=== PATIENT | male | born 1965 | race Caucasian/White ===

== ENCOUNTER → 2023-03-21 | Outpatient (CLI) | payer BC ==
--- NOTE | 2023-03-21 09:30 | XR ---
EXAMINATION TYPE: XR spine complete AP and Lat DATE OF EXAM: 03/21/2023 COMPARISON: NONE HISTORY: Pain TECHNIQUE: AP and lateral views of the cervical, thoracic and lumbar spine submitted FINDINGS: Cervical spine: There is hypertrophic change at level C4-5, C5-C6 and C6-C7 with anterior spurring. M ild disc space loss at C5-6 and C6-C7. Mild facet arthropathy. Thoracic spine: Alignment is anatomic and there is multilevel moderate hypertrophic and degenerative disc disease. No compression deformities. Pedicles intact. Lumbar spine: There is multilevel anterior hypertrophic spurring. Facet arthropathy seen at levels L3 -S1. Suspect foraminal encroachment L4-5 and L5-S1. Pedicles are intact and disc spaces preserved. IMPRESSION: 1. Multilevel hypertrophic spurring throughout the cervical, thoracic and lumbar spine with foraminal encroachment suspected L4-5 and L5-S1. 2. Multilevel mild degenerative disc disease cervical spine. 3. Multilevel moderate degenerative disease thoracic spine.
[2023-03-21 15:51] LABS: Basophils # (A) 0.04 X 10*3/uL (0.00-0.10); Basophils % (A) 0.7 %; Eosinophils # (A) 0.21 X 10*3/uL (0.04-0.35); Eosinophils % (A) 3.7 %; HCT 45.1 % (39.6-50.0); HGB 14.7 d/dL (12.0-15.0); Lymphocytes # (A) 1.77 X 10*3/uL (0.90-5.00); MCH 30.7 pg (27.0-32.0); MCHC 32.6 d/dL (32.0-37.0); MCV 94.2 FL (80.0-97.0); Mean Platelet Volume 11.1 FL (9.5-12.2); Monocytes # (A) 0.35 X 10*3/uL (0.20-1.00); Monocytes % (A) 6.1 %; NRBC Per 100 WBC 0 X 10*3/uL (0.00-0.01); Neutrophils # (A) 3.33 X 10*3/uL (1.80-7.70); Neutrophils % (A) 58.3 %; Platelet Count 256 X 10*3/uL (140-440); RBC 4.79 X 10*6/uL (4.40-5.60); RDW 13.3 % (11.5-14.5); WBC 5.71 X 10*3/uL (4.50-10.00)
[2023-03-21 15:54] LABS: ALT 34 U/L (10-49); AST 17 U/L (14-35); Albumin 4.4 d/dL (3.8-4.9); Alkaline Phosphatase 84 U/L (41-126); BUN/Creat Ratio 32.86 Ratio (12.00-20.00); Calcium 9.5 mg/dL (8.7-10.3); Carbon Dioxide 27.7 mmol/L (21.6-31.8); Chloride 103 mmol/L (96-109); Globulin 2.2 d/dL (1.6-3.3); Glucose 136 mg/dL (70-110); Potassium 3.8 mmol/L (3.5-5.5); Sodium 142 mmol/L (135-145); Total Bilirubin 0.5 mg/dL (0.3-1.2); Total Protein 6.6 d/dL (6.2-8.2)
== END | disposition home or self-care (01) ==
LOC: LABWHC1 08:11
PROVIDERS: ATTEND Nurse Practitioner Family
DX: M50.30 Other cervical disc degeneration, unspecified cervical region (principal); M51.34 Other intervertebral disc degeneration, thoracic region; I10 Essential (primary) hypertension; D75.1 Secondary polycythemia; R59.0 Localized enlarged lymph nodes
CPT/HCPCS: 36415; 72082; 80053; 85025

== ENCOUNTER 2023-11-12 09:49 | Inpatient (IN) | payer BC ==
--- NOTE | 2023-11-12 11:36 | ED ---
General Adult HPI - General Chief complaint: Abdominal Pain Stated complaint: Small Bowel Obs, Transfer Time Seen by Provider: 11/12/23 09:49 Source: patient, EMS, RN notes reviewed, old records reviewed Mode of arrival: EMS Limitations: no limitations - History of Present Illness Initial comments: This is a 57-year-old male who presents to the emergency department from [facility]. Patient was sent over here for a small bowel obstruction. Patient states on Monday he started having diarrhea and he vomited 1 time and then he continued to have diarrhea he went to [facility] noticed his abdomen was distended they did a CAT scan and he was diagnosed with a small bowel obstruction. Patient had an NG tube placed and he states he feels considerably better. Patient denies any fever or chills. Patient states he did have a couple people he was around who had similar symptoms but they are symptoms subsided. Patient denies any chest pain or difficulty breathing. Patient denies any headache or numbness or weakness. - Related Data Home Medications Medication Instructions Recorded Confirmed Aspirin 1 tab PO DAILY 12/12/22 02/06/23 Atorvastatin [Lipitor] 1 tab PO DAILY 12/12/22 02/06/23 Cholecalciferol [Vitamin D3 (25 50 mcg PO DAILY 12/12/22 02/06/23 Mcg = 1000 Iu)] Losartan [Cozaar] 100 mg PO DAILY 12/12/22 02/06/23 Multivitamin [Multivitamins Adult 1 tab PO DAILY 12/12/22 02/06/23 Gummies] atenoloL 1 tab PO DAILY 12/12/22 02/06/23 hydroCHLOROthiazide 1 tab PO DAILY 12/12/22 02/06/23 Allergies Allergy/AdvReac Type Severity Reaction Status Date / Time azithromycin AdvReac Rash/Hives Verified 11/12/23 10:13 Review of Systems ROS Statement: Those systems with pertinent positive or pertinent negative responses have been documented in the HPI. ROS Other: All systems not noted in ROS Statement are negative. Past Medical History Past Medical History: Coronary Artery Disease (CAD), Cancer, Hyperlipidemia, Hypertension, Myocardial Infarction ([place]) Additional Past Medical History / Comment(s): inferior wall mi ,skin cancer basal cell Last Myocardial Infarction Date:: 34 years old History of Any Multi-Drug Resistant Organisms: None Reported Past Surgical History: No Surgical Hx Reported, Heart Catheterization Additional Past Surgical History / Comment(s): basal cell removal Past Anesthesia/Blood Transfusion Reactions: No Reported Reaction Past Psychological History: Depression Smoking Status: Never smoker General Exam - General Exam Comments Initial Comments: GENERAL: Patient is well-developed and well-nourished. Patient is nontoxic and well- hydrated and is in mild distress. ENT: Neck is soft and supple. No significant lymphadenopathy is noted. Oropharynx is clear. Moist mucous membranes. Neck has full range of motion without eliciting any pain. EYES: The sclera were anicteric and conjunctiva were pink and moist. Extraocular movements were intact and pupils were equal round and reactive to light. Eyelids were unremarkable. PULMONARY: Unlabored respirations. Good breath sounds bilaterally. No audible rales rhonchi or wheezing was noted. CARDIOVASCULAR: There is a regular rate and rhythm without any murmurs gallops or rubs. ABDOMEN: Mildly distended abdomen with some minimal diffuse tenderness SKIN: Skin is clear with no lesions or rashes and otherwise unremarkable. NEUROLOGIC: Patient is alert and oriented x3. Cranial nerves II through XII are grossly intact. Motor and sensory are also intact. Normal speech, volume and content. Symmetrical smile. MUSCULOSKELETAL: Normal extremities with adequate strength and full range of motion. LYMPHATICS: No significant lymphadenopathy is noted PSYCHIATRIC: Normal psychiatric evaluation. Limitations: no limitations Course Vital Signs 11/12/23 11/12/23 09:54 11:01 Temperature 99.0 F Pulse Rate 99 94 Respiratory 20 Rate O2 Sat by Pulse 94 L Oximetry Medical Decision Making - Medical Decision Making Was pt. sent in by a medical professional or institution (, PA, SPOUT TENDER, urgent care, hospital, or residential...) When possible be specific @ -Patient was sent to us by [facility] Did you speak to anyone other than the patient for history (EMS, parent, family, police, friend...)? What history was obtained from this source @ -ER doctor gave us report prior to the patient's arrival. EMS gave us a report about patient and [facility]. Did you review nursing and triage notes (agree or disagree)? Why? @ -I reviewed and agree with nursing and triage notes Were old charts reviewed (outside hosp., previous admission, EMS record, old EKG, old radiological studies, urgent care reports/EKG's, residential records)? Report findings @ -I reviewed all the documents that came with the patient for [facility] as well as lab work CTs and x-rays Differential Diagnosis (chest pain, altered mental status, abdominal pain women, abdominal pain men, vaginal bleeding, weakness, fever, dyspnea, syncope, headache, dizziness, GI bleed, back pain, seizure, CVA, palpatations, mental health, musculoskeletal)? @ -Differential Abdominal Pain Men: Appendicitis, cholecystitis, diverticulosis, ischemic bowel, pancreatitis, hepatitis, UTI, gastroenteritis, AAA, incarcerated hernia, bowel obstruction, constipation, inflammatory bowel, hepatitis, peptic ulcer disease, splenic infarction, perforated viscus, testicular torsion, this is not meant to be an all-inclusive list EKG interpreted by me (3pts min.). @ -As above X-rays interpreted by me (1pt min.). @ -None done CT interpreted by me (1pt min.). @ -None done U/S interpreted by me (1pt. min.). @ -None done What testing was considered but not performed or refused? (CT, X-rays, U/S, labs)? Why? @ -None What meds were considered but not given or refused? Why? @ -None Did you discuss the management of the patient with other professionals (professionals i.e. , PA, SPOUT TENDER, lab, RT, psych nurse, social services coordinator, leasing director, teacher, small business banking officer, caser up)? Give summary @ -I spoke with [facility] they agreed admit the patient but the patient wrote admitting orders Was smoking cessation discussed for >3mins.? @ -No Was critical care preformed (if so, how long)? @ -No Were there social determinants of health that impacted care today? How? (Homelessness, low income, unemployed, alcoholism, drug addiction, trans portation, low edu. Level, literacy, decrease access to med. care, penitentiary, rehab)? @ -No Was there de-escalation of care discussed even if they declined (Discuss DNR or withdrawal of care, Hospice)? DNR status @ -No What co-morbidities impacted this encounter? (DM, HTN, Smoking, COPD, CAD, Cancer, CVA, ARF, Chemo, Hep., AIDS, mental health diagnosis, sleep apnea, morbid obesity)? @ -None Was patient admitted / discharged? Hospital course, mention meds given and route, prescriptions, significant lab abnormalities, going to OR and other pertinent info. @ -Patient had an NG in place already I did review the lab results as well as CAT scan did show what I believed to be a partial small bowel obstruction. I spoke with [facility] hospitalist agreed admit the patient admit the patient right admitting orders consult to Dr. Faustin Undiagnosed new problem with uncertain prognosis? @ -No Drug Therapy requiring intensive monitoring for toxicity (Heparin, Nitro, Insulin, Cardizem)? @ -No Were any procedures done? @ -No Diagnosis/symptom? @ -Partial small bowel obstruction Acute, or Chronic, or Acute on Chronic? @ -Acute Uncomplicated (without systemic symptoms) or Complicated (systemic symptoms)? @ -Complicated Side effects of treatment? @ -No Exacerbation, Progression, or Severe Exacerbation? @ -No Poses a threat to life or bodily function? How? (Chest pain, [place], HI, pneumonia, PE, COPD, DKA, ARF, appy, cholecystitis, CVA, Diverticulitis, Homicidal, Suicidal, threat to staff... and all critical care pts) @ -Yes this could lead to sepsis and endorgan dysfunction Disposition Clinical Impression: Partial small bowel obstruction Disposition: ADMITTED IP TO THIS HOSP Referrals: Garrett Brink DO [Primary Care Provider] - 1-2 days Time of Disposition: 11:35
[2023-11-12] MEDS: SODIUM CHLORIDE 0.9% 1,000 ML IV ONE (13:32)
[2023-11-12] MEDS: MORPHINE SULFATE 4 MG/ML SYRINGE IVP PRN (14:50)
--- NOTE | 2023-11-12 17:43 | P.HPIM ---
History of Present Illness H&P Date: 11/12/23 Chief Complaint: Abdominal pain/bowel obstruction 57-year-old male, history of hypertension and hyperlipidemia, who presents to the emergency department from [facility]. Patient was sent over here for a small bowel obstruction. Patient states on Monday he started having diarrhea and he vomited 1 time and then 30 send he continued to have diarrhea he went to [facility] noticed his abdomen was distended they did a CAT scan and he was diagnosed with a small bowel obstruction. Patient had an NG tube placed and he states he feels considerably better. Patient denies any fever or chills. Patient states he did have a couple people he was around who had similar symptoms but they are symptoms subsided. Patient denies any chest pain or difficulty breathing. Patient denies any headache or numbness or weakness. Review of Systems REVIEW OF SYSTEMS: CONSTITUTIONAL: No fever, no malaise, no fatigue. HEENT: No recent visual problems or hearing problems. Denied any sore throat. CARDIOVASCULAR: No chest pain, orthopnea, PND, no palpitations, no syncope. PULMONARY: No shortness of breath, no cough, no hemoptysis. GASTROINTESTINAL: No diarrhea, no nausea, no vomiting, no abdominal pain. NEUROLOGICAL: No headaches, no weakness, no numbness. HEMATOLOGICAL: Denies any bleeding or petechiae. GENITOURINARY: Denies any burning micturition, frequency, or urgency. MUSCULOSKELETAL/RHEUMATOLOGICAL: Denies any joint pain, swelling, or any muscle pain. ENDOCRINE: Denies any polyuria or polydipsia. The rest of the 14-point review of systems is negative. Past Medical History Past Medical History: Coronary Artery Disease (CAD), Cancer, Hyperlipidemia, Hypertension, Myocardial Infarction ([place]) Additional Past Medical History / Comment(s): inferior wall mi ,skin cancer basal cell Last Myocardial Infarction Date:: 34 years old History of Any Multi-Drug Resistant Organisms: None Reported Past Surgical History: No Surgical Hx Reported, Heart Catheterization Additional Past Surgical History / Comment(s): basal cell removal Past Anesthesia/Blood Transfusion Reactions: No Reported Reaction Past Psychological History: Depression Smoking Status: Never smoker - Past Family History Mother Family Medical History: Cancer Additional Family Medical History / Comment(s): breast ca x2, glaucoma Father Family Medical History: Asthma, Hypertension Brother(s) Family Medical History: Cancer, Hypertension Additional Family Medical History / Comment(s): prostate ca, diverticulosis Sister(s) Family Medical History: Cancer, Hypertension Additional Family Medical History / Comment(s): thyroid ca Medications and Allergies Home Medications Medication Instructions Recorded Confirmed Type Aspirin 81 mg PO DAILY 12/12/22 11/12/23 History Atorvastatin [Lipitor] 10 mg PO DAILY 12/12/22 11/12/23 History Multivitamin [Multivitamins Adult 1 tab PO DAILY 12/12/22 11/12/23 History Gummies] atenoloL 25 mg PO DAILY 12/12/22 11/12/23 History hydroCHLOROthiazide 25 mg PO DAILY 12/12/22 11/12/23 History Cholecalciferol (Vitamin D3) 1,250 mcg PO SALINAS 11/12/23 11/12/23 History [Decara (50,000 Iu)] Dicyclomine [Bentyl] 20 mg PO DIRECTED 11/12/23 11/12/23 History Losartan Potassium 100 mg PO DAILY 11/12/23 11/12/23 History Ondansetron Odt [Zofran Odt] 4 mg PO DIRECTED PRN 11/12/23 11/12/23 History Ubidecarenone [Coenzyme Q10] 200 mg PO DAILY 11/12/23 11/12/23 History Allergies Allergy/AdvReac Type Severity Reaction Status Date / Time azithromycin Allergy see Verified 11/12/23 15:06 comments telithromycin [From Ketek] Allergy Swelling Verified 11/12/23 15:06 Physical Exam Vitals: Vital Signs Temp Pulse Resp BP Pulse Ox 11/12/23 13:18 90 16 114/66 91 L 11/12/23 11:01 94 11/12/23 09:54 99.0 F 99 20 94 L Intake and Output 11/11/23 11/12/23 11/12/23 22:59 06:59 14:59 Other: Weight 97.522 kg GENERAL: Patient is well-developed and well-nourished. Patient is nontoxic and well- hydrated and is in mild distress. ENT: Neck is soft and supple. No significant lymphadenopathy is noted. Oropharynx is clear. Moist mucous membranes. Neck has full range of motion without eliciting any pain. EYES: The sclera were anicteric and conjunctiva were pink and moist. Extraocular movements were intact and pupils were equal round and reactive to light. Eyelids were unremarkable. PULMONARY: Unlabored respirations. Good breath sounds bilaterally. No audible rales rhonchi or wheezing was noted. CARDIOVASCULAR: There is a regular rate and rhythm without any murmurs gallops or rubs. ABDOMEN: Mildly distended abdomen with some minimal diffuse tenderness SKIN: Skin is clear with no lesions or rashes and otherwise unremarkable. NEUROLOGIC: Patient is alert and oriented x3. Cranial nerves II through XII are grossly intact. Motor and sensory are also intact. Normal speech, volume and content. Symmetrical smile. MUSCULOSKELETAL: Normal extremities with adequate strength and full range of motion. LYMPHATICS: No significant lymphadenopathy is noted PSYCHIATRIC: Normal psychiatric evaluation. Assessment and Plan Assessment: 1. Partial small bowel obstruction -Patient has NG tube into intermittent suction; will be kept n.p.o.; IV fluids in form of normal saline at a rate of 75 cc an hour -Pain control with IV morphine 4 mg every 6 hours -- Neurosurgery is consulted 2. Hypertension; patient takes atenolol 25 mg daily along with hydrochlorothiazide 25 mg daily and losartan 100 mg daily; blood pressure currently remains soft; will hold off on antihypertensive therapy 3. Hyperlipidemia; hold home dose of Lipitor 10 mg daily 4. Vitamin D deficiency; patient takes vitamin D 50,000 units weekly DVT prophylaxis; SCDs CODE STATUS; full code
[2023-11-12 18:13] LABS: Basophils % (A) 0 %; Eosinophils % (A) 0 %; HCT 47.4 % (39.0-53.0); HGB 15.8 gm/dL (13.0-17.5); Lymphocytes # (A) 0.6 k/uL (1.0-4.8); Lymphocytes % (A) 16 %; MCHC 33.3 g/dL (31.0-37.0); MCV 90.1 fL (80.0-100.0); Monocytes # (A) 0.4 k/uL (0-1.0); Monocytes % (A) 11 %; Neutrophils # (A) 2.8 k/uL (1.3-7.7); Neutrophils % (A) 69 %; Platelet Count 191 k/uL (150-450); RBC 5.26 m/uL (4.30-5.90); RDW 13.7 % (11.5-15.5)
[2023-11-12 18:34] LABS: ALT 69 U/L (4-49); AST 36 U/L (17-59); African American GFR (CKD) 90 (>60 ml/min/1.73 sqM); Albumin 3.4 g/dL (3.5-5.0); Albumin/Globulin Ratio 1.4; Alkaline Phosphatase 56 U/L (38-126); Anion Gap 10 mmol/L; Blood Urea Nitrogen 42 mg/dL (9-20); Carbon Dioxide 25 mmol/L (22-30); Chloride 103 mmol/L (98-107); Globulin 2.5 g/dL; Glucose 110 mg/dL (74-99); Non-African American GFR(CKD) 78 (>60 ml/min/1.73 sqM); Potassium 3.5 mmol/L (3.5-5.1); Sodium 138 mmol/L (137-145); Total Bilirubin 0.6 mg/dL (0.2-1.3); Total Protein 5.9 g/dL (6.3-8.2)
[2023-11-13 08:43] LABS: HCT 46.5 % (39.6-50.0); HGB 15.4 g/dL (13.0-17.0); MCH 29.7 pg (27.0-32.0); MCHC 33.1 g/dL (32.0-37.0); MCV 89.6 FL (80.0-97.0); NRBC Per 100 WBC 0 X 10*3/uL (0.00-0.01); Platelet Count 204 X 10*3/uL (140-440); RBC 5.19 X 10*6/uL (4.40-5.60); RDW 13.7 % (11.5-14.5); WBC 4.48 X 10*3/uL (4.50-10.00)
[2023-11-13 09:10] LABS: BUN/Creat Ratio 32.12 Ratio (12.00-20.00); Blood Urea Nitrogen 25.7 mg/dL (9.0-27.0); Chloride 105 mmol/L (96-109); Glucose 116 mg/dL (70-110); Potassium 3.4 mmol/L (3.5-5.5); Sodium 143 mmol/L (135-145)
[2023-11-13 09:11] LABS: ALT 63 U/L (10-49); AST 28 U/L (14-35); Albumin 3.6 g/dL (3.8-4.9); Albumin/Globulin Ratio 1.64 Ratio (1.60-3.17); Alkaline Phosphatase 55 U/L (41-126); Calcium 8.4 mg/dL (8.7-10.3); Carbon Dioxide 26.3 mmol/L (21.6-31.8); Globulin 2.2 g/dL (1.6-3.3); Total Bilirubin 0.5 mg/dL (0.3-1.2); Total Protein 5.8 g/dL (6.2-8.2)
[2023-11-13 09:53] LABS: Basophils # (A) 0.04 X 10*3/uL (0.00-0.10); Basophils % (A) 0.9 %; Eosinophils # (A) 0.04 X 10*3/uL (0.04-0.35); Eosinophils % (A) 0.9 %; Lymphocytes # (A) 0.94 X 10*3/uL (0.90-5.00); Monocytes # (A) 0.87 X 10*3/uL (0.20-1.00); Monocytes % (A) 19.4 %; Neutrophils # (A) 2.57 X 10*3/uL (1.80-7.70); Neutrophils % (A) 57.4 %; RBC Morphology Normal (Normal)
[2023-11-13] MEDS ORDERED: HYDROmorphone 0.5 MG/0.5 ML SYRINGE IVP PRN (09:59)
[2023-11-13] MEDS: KETOROLAC 15 MG/ML 1 ML VIAL IVP PRN (10:35)
--- NOTE | 2023-11-13 10:35 | P.PN ---
Subjective Progress Note Date: 11/13/23 This a 57-year-old gentleman transferred in from [facility] with reported diagnosis of small bowel obstruction. NG tube present with 450 MLS bilious output overnight. Continued watery diarrhea, bloated , softer, lessened abdominal discomfort. Denies nausea, vomiting. Receiving IV fluid hydration. Reports unable to take morphine, causes increase in shortness of breath. Denies chest pain, palpitations or shortness of breath. Afebrile, normal WBC. Potassium 3.4. Renal function stable. Objective - Vital Signs Vital signs: Vital Signs Temp 97.6 F 11/13/23 07:44 Pulse 81 11/13/23 07:44 Resp 18 11/13/23 07:44 BP 135/74 11/13/23 07:44 Pulse Ox 95 11/13/23 07:44 FiO2 Intake & Output 11/12/23 11/13/23 11/13/23 18:59 06:59 18:59 Output Total 1000 452 Balance -1000 -452 Weight 97.522 kg Output: Gastric Drainage 500 450 Urine 500 Stool 2 Other: # Voids 1 2 - Exam PHYSICAL EXAM: VITAL SIGNS: [As above] GENERAL: Sitting up in bed, no acute distress HEENT: Normocephalic, atraumatic conjunctivae normal. eyes normal. NECK: Supple, no JVD. CARDIOVASCULAR: S1, S2 regular. No murmur RESPIRATION: Unlabored, equal air entry, breath sounds diminished in the bases. ABDOMEN: Soft, distended, diffuse mild tenderness, hypoactive bowel sounds LEGS: No edema. no swelling PSYCHIATRY: Alert and oriented X3, mood and affect normal. NERVOUS SYSTEM: Cranial N 2-12 grossly normal. No focal deficits. Strength and sensation grossly intact. Skin: Warm and dry, no rash - Labs CBC & Chem 7: 11/13/23 05:43 11/13/23 05:43 Labs: Abnormal Lab Results - Last 24 Hours (Table) 11/12/23 11/12/23 11/13/23 Range/Units 17:58 17:58 05:43 WBC 4.48 L (4.50-10.00) X 10*3/uL Lymphocytes # 0.6 L (1.0-4.8) k/uL Potassium (3.5-5.5) mmol/L BUN 42 H (9-20) mg/dL BUN/Creatinine Ratio (12.00-20.00) Ratio Glucose 110 H (74-99) mg/dL Calcium 8.0 L (8.4-10.2) mg/dL ALT 69 H (4-49) U/L Total Protein 5.9 L (6.3-8.2) g/dL Albumin 3.4 L (3.5-5.0) g/dL 11/13/23 Range/Units 05:43 WBC (4.50-10.00) X 10*3/uL Lymphocytes # (1.0-4.8) k/uL Potassium 3.4 L (3.5-5.5) mmol/L BUN (9-20) mg/dL BUN/Creatinine Ratio 32.12 H (12.00-20.00) Ratio Glucose 116 H (74-99) mg/dL Calcium 8.4 L (8.4-10.2) mg/dL ALT 63 H (4-49) U/L Total Protein 5.8 L (6.3-8.2) g/dL Albumin 3.6 L (3.5-5.0) g/dL Assessment and Plan Assessment: Partial small bowel obstruction CAD Hypertension Hyperlipidemia Obesity, BMI 31 Plan: Continue on current medication using ,monitoring and symptomatic treatment. NPO, IV fluid hydration. Pain management adjusted to Toradol with Dilaudid as needed for breakthrough. Surgical consult in place, recommendations pending. Increase ambulation as tolerated. at bedside. Questions and concerns addressed. The impression and plan of care has been dictated as directed. : I performed a history and examination of this patient, discussed the same with the dictator. I agree with the dictator's note ,documented as a scribe. Any additional findings or plans will be noted.
[2023-11-13] MEDS: PANTOPRAZOLE 40 MG/10 ML VIAL IVP SCH (10:37)
[2023-11-13] MEDS: 0.9% NACL WITH KCL 40 MEQ/L 1,000 ML IV SCH (11:29)
--- NOTE | 2023-11-13 12:47 | P.GSCN ---
History of Present Illness Consult date: 11/13/23 History of present illness: CHIEF COMPLAINT: Abdominal pain HISTORY OF PRESENT ILLNESS: This is a 57-year-old male who was a transfer from [facility] for a small bowel obstruction. Patient reports that he started to feel ill on Monday and was having diarrhea and vomiting. He reports abdominal pain as well as his abdomen became distended. He was not feeling any better over the weekend and then went to [facility]. Patient reports that most of the pain was located in the upper abdomen and stomach area. He had a CT scan abdomen pelvis completed there with findings suggesting small bowel obstruction without focal transition point in or concerning wall thickening or inflammatory change. Patient had NG tube placed. He reports having a liter out through the NG tube right away. Since being transferred here he had 500 mL out yesterday through the NG tube and 450 mL out this morning. Patient reports that his abdomen is less distended since the NG tube has been placed. He reports decreased appetite. And improvement in the upper abdominal pain. Last colonoscopy was 2 years ago and unremarkable per patient. He has never had a history of EGD or any history of bowel obstruction. PAST MEDICAL HISTORY: See below PAST SURGICAL HISTORY: See below MEDICATIONS: See below ALLERGIES: See below SOCIAL HISTORY: No illicit drug use. REVIEW OF SYSTEMS: CONSTITUTIONAL: Denies fever or chills. HEENT: Denies blurred vision, vision changes, or eye pain. Denies hemoptysis CARDIOVASCULAR: Denies chest pain or pressure. RESPIRATORY: No shortness of breath. GASTROINTESTINAL: See HPI for pertinent findings HEMATOLOGIC: Denies bleeding disorders. GENITOURINARY: Denies any blood in urine or increased urinary frequency. SKIN: Denies pruitis. Denies rash. PHYSICAL EXAM: VITAL SIGNS: Reviewed GENERAL: Well-developed in no acute distress. HEENT: No sclera icterus. Extraocular movements grossly intact. Moist buccal mucosa. Head is atraumatic, normocephalic. No nasal drainage. ABDOMEN: Soft. Mildly Distended with mild tenderness in the upper abdomen NEUROLOGIC: Alert and oriented. Cranial nerves II through XII grossly intact. LABORATORY DATA: WBC 4.48 Hgb 15.4 platelets 204 Sodium 143 potassium is 3.4 creatinine 0.8 Glucose 116 Total bilirubin 0.5 AST 28 ALT 63 alk phos 55 IMAGING: CT scan abdomen pelvis from [place] reports findings suggest small bowel obstruction without focal transition point or concerning wall thickening, inflammatory change or evidence of ischemia. Suspicion of 1.1 cm distal splenic artery aneurysm without evidence of recent hemorrhage. ASSESSMENT: 1. Partial small bowel obstruction 2. Hypokalemia PLAN: -Repeat abdominal x-ray in a.m. -Continue NG tube for decompression -Keep patient n.p.o. -Continue pain management -Continue IV fluids -Medicine service added potassium to IV fluids -Repeat BMP in a.m. -Encourage patient to increase activity level Physician Farm Machinery Mechanic note has been reviewed by physician. Signing provider agrees with the documented findings, assessment, and plan of care. I have personally seen and examined the patient, reviewed the DIRECTOR EMPLOYEE COMMUNICATIONS /PAs history, exam and MDM and agree with the assessment and plan as written. Based on total visit time, I have performed more than 50% of the visit. As above: Patient transferred from outpatient hospital with possible bowel obstruction. No surgical history. CAT scan reviewed. Findings more consistent with ileus. Patient has 3 family members who had vomiting and diarrhea illness last week. Patient says he came to the hospital because his symptoms were persisting. Feels better today. Still with moderate nasogastric output. Keep NG tube in place. Repeat x-rays tomorrow. Ambulate. Past Medical History Past Medical History: Coronary Artery Disease (CAD), Cancer, Hyperlipidemia, Hypertension, Myocardial Infarction (PA) Additional Past Medical History / Comment(s): inferior wall mi ,skin cancer basal cell Last Myocardial Infarction Date:: 34 years old History of Any Multi-Drug Resistant Organisms: None Reported Past Surgical History: No Surgical Hx Reported, Heart Catheterization Additional Past Surgical History / Comment(s): basal cell removal Past Anesthesia/Blood Transfusion Reactions: No Reported Reaction Past Psychological History: Depression Smoking Status: Never smoker - Past Family History Mother Family Medical History: Cancer Additional Family Medical History / Comment(s): breast ca x2, glaucoma Father Family Medical History: Asthma, Hypertension Brother(s) Family Medical History: Cancer, Hypertension Additional Family Medical History / Comment(s): prostate ca, diverticulosis Sister(s) Family Medical History: Cancer, Hypertension Additional Family Medical History / Comment(s): thyroid ca Medications and Allergies Home Medications Medication Instructions Recorded Confirmed Type Aspirin 81 mg PO DAILY 12/12/22 11/12/23 History Atorvastatin [Lipitor] 10 mg PO DAILY 12/12/22 11/12/23 History Multivitamin [Multivitamins Adult 1 tab PO DAILY 12/12/22 11/12/23 History Gummies] atenoloL 25 mg PO DAILY 12/12/22 11/12/23 History hydroCHLOROthiazide 25 mg PO DAILY 12/12/22 11/12/23 History Cholecalciferol (Vitamin D3) 1,250 mcg PO SALINAS 11/12/23 11/12/23 History [Decara (50,000 Iu)] Dicyclomine [Bentyl] 20 mg PO DIRECTED 11/12/23 11/12/23 History Losartan Potassium 100 mg PO DAILY 11/12/23 11/12/23 History Ondansetron Odt [Zofran Odt] 4 mg PO DIRECTED PRN 11/12/23 11/12/23 History Ubidecarenone [Coenzyme Q10] 200 mg PO DAILY 11/12/23 11/12/23 History Allergies Allergy/AdvReac Type Severity Reaction Status Date / Time azithromycin Allergy see Verified 11/12/23 15:06 comments telithromycin [From Ketek] Allergy Swelling Verified 11/12/23 15:06 Surgical - Exam Vital Signs Temp Pulse Resp Pulse Ox 99.0 F 99 20 94 L 11/12/23 09:54 11/12/23 09:54 11/12/23 09:54 11/12/23 09:54 Results - Labs 11/13/23 05:43 11/13/23 05:43 Abnormal Lab Results - Last 24 Hours (Table) 11/12/23 11/12/23 11/13/23 Range/Units 17:58 17:58 05:43 WBC 4.48 L (4.50-10.00) X 10*3/uL Lymphocytes # 0.6 L (1.0-4.8) k/uL Potassium (3.5-5.5) mmol/L BUN 42 H (9-20) mg/dL BUN/Creatinine Ratio (12.00-20.00) Ratio Glucose 110 H (74-99) mg/dL Calcium 8.0 L (8.4-10.2) mg/dL ALT 69 H (4-49) U/L Total Protein 5.9 L (6.3-8.2) g/dL Albumin 3.4 L (3.5-5.0) g/dL 11/13/23 Range/Units 05:43 WBC (4.50-10.00) X 10*3/uL Lymphocytes # (1.0-4.8) k/uL Potassium 3.4 L (3.5-5.5) mmol/L BUN (9-20) mg/dL BUN/Creatinine Ratio 32.12 H (12.00-20.00) Ratio Glucose 116 H (74-99) mg/dL Calcium 8.4 L (8.4-10.2) mg/dL ALT 63 H (4-49) U/L Total Protein 5.8 L (6.3-8.2) g/dL Albumin 3.6 L (3.5-5.0) g/dL Diabetes panel 11/12/23 11/13/23 Range/Units 17:58 05:43 Sodium 138 143 (137-145) mmol/L Potassium 3.5 3.4 L (3.5-5.1) mmol/L Chloride 103 105 (98-107) mmol/L Carbon Dioxide 25 26.3 (22-30) mmol/L BUN 42 H 25.7 (9-20) mg/dL Creatinine 1.06 0.8 (0.66-1.25) mg/dL Glucose 110 H 116 H (74-99) mg/dL Calcium 8.0 L 8.4 L (8.4-10.2) mg/dL AST 36 28 (17-59) U/L ALT 69 H 63 H (4-49) U/L Alkaline Phosphatase 56 55 (38-126) U/L Total Protein 5.9 L 5.8 L (6.3-8.2) g/dL Albumin 3.4 L 3.6 L (3.5-5.0) g/dL Calcium panel 11/12/23 11/13/23 Range/Units 17:58 05:43 Calcium 8.0 L 8.4 L (8.4-10.2) mg/dL Albumin 3.4 L 3.6 L (3.5-5.0) g/dL Pituitary panel 11/12/23 11/13/23 Range/Units 17:58 05:43 Sodium 138 143 (137-145) mmol/L Potassium 3.5 3.4 L (3.5-5.1) mmol/L Chloride 103 105 (98-107) mmol/L Carbon Dioxide 25 26.3 (22-30) mmol/L BUN 42 H 25.7 (9-20) mg/dL Creatinine 1.06 0.8 (0.66-1.25) mg/dL Glucose 110 H 116 H (74-99) mg/dL Calcium 8.0 L 8.4 L (8.4-10.2) mg/dL Adrenal panel 11/12/23 11/13/23 Range/Units 17:58 05:43 Sodium 138 143 (137-145) mmol/L Potassium 3.5 3.4 L (3.5-5.1) mmol/L Chloride 103 105 (98-107) mmol/L Carbon Dioxide 25 26.3 (22-30) mmol/L BUN 42 H 25.7 (9-20) mg/dL Creatinine 1.06 0.8 (0.66-1.25) mg/dL Glucose 110 H 116 H (74-99) mg/dL Calcium 8.0 L 8.4 L (8.4-10.2) mg/dL Total Bilirubin 0.6 0.5 (0.2-1.3) mg/dL AST 36 28 (17-59) U/L ALT 69 H 63 H (4-49) U/L Alkaline Phosphatase 56 55 (38-126) U/L Total Protein 5.9 L 5.8 L (6.3-8.2) g/dL Albumin 3.4 L 3.6 L (3.5-5.0) g/dL
--- NOTE | 2023-11-14 08:08 | XR ---
EXAMINATION TYPE: XR abdomen 2V DATE OF EXAM: 11/14/2023 COMPARISON: 11 14 HISTORY: 11/12/2023 TECHNIQUE: One view abdominal series FINDINGS: The osseous structures are intact. The bowel gas pattern is nonspecific. NG tube seen with persisten t dilated small bowel loops and air-fluid levels. Elevated right hemidiaphragm. Degenerative changes of the spine. Basilar atelectasis favored over pneumonia. Calcifications in the pelvis likely vascula r. Arthropathy of the hips. IMPRESSION: 1. NG tube placement was interval reduction in distention of the small bowel. Persistent air-fluid le vels and dilated bowel loops are suggestive of obstruction.
[2023-11-14 11:14] LABS: BUN/Creat Ratio 37.67 Ratio (12.00-20.00); Blood Urea Nitrogen 22.6 mg/dL (9.0-27.0); Calcium 8.4 mg/dL (8.7-10.3); Chloride 110 mmol/L (96-109); Glucose 100 mg/dL (70-110); Potassium 3.4 mmol/L (3.5-5.5); Sodium 145 mmol/L (135-145)
[2023-11-14] MEDS: BENZOCAINE SPRAY 1 CAN MUCOUS MEM PRN (13:22)
--- NOTE | 2023-11-14 16:21 | P.PN ---
Subjective Progress Note Date: 11/14/23 CHIEF COMPLAINT: Abdominal pain HISTORY OF PRESENT ILLNESS: Patient reports he is feeling better. Pain has improved. He did have some nausea earlier. He is having flatus. Episode of diarrhea yesterday. Abdominal x-ray reports NG tube placement interval reduction in distention of the small bowel. Persistent air-fluid levels and dilated bowel loops are suggestive of obstruction. Afebrile. k 3.4 PHYSICAL EXAM: VITAL SIGNS: Reviewed. GENERAL: Well-developed in no acute distress. ABDOMEN: Soft. mildly distended. Nontender. NEUROLOGIC: Alert and oriented. Cranial nerves II through XII grossly intact. ASSESSMENT: 1. Abdominal ileus PLAN: -Discontinue NG tube -Start clear liquid diet -Replace potassium. Repeat potassium level in AM. Check magnesium level due to recurrent hypokalemia -Encourage patient ambulate Physician Cleaning Technician note has been reviewed by physician. Signing provider agrees with the documented findings, assessment, and plan of care. I have personally seen and examined the patient, reviewed the DISTRIBUTION WAREHOUSE MANAGER /PAs history, exam and MDM and agree with the assessment and plan as written. Based on total visit time, I have performed more than 50% of the visit. As above: Patient doing better today. Tolerating liquid diet. Had a solid stool today. No abdominal pain currently. If doing well tomorrow plan discharge. Objective - Vital Signs Vital signs: Vital Signs Temp 98 F 11/14/23 08:00 Pulse 91 11/14/23 11:29 Resp 18 11/14/23 11:29 BP 158/92 11/14/23 08:00 Pulse Ox 94 L 11/14/23 08:00 FiO2 Intake & Output 11/13/23 11/14/23 11/14/23 18:59 06:59 18:59 Intake Total 750 Output Total 500 600 Balance 250 -600 Intake: Intake, IV Titration 750 Amount 0.9% NaCl with KCl 40 Meq 750 /l 1,000 ml @ 75 mls/hr IV .[id number] [facility] Rx#: [id number] Output: Gastric Drainage 500 600 Other: Voiding Method Toilet # Voids 2 1 - Labs CBC & Chem 7: 11/13/23 05:43 11/14/23 06:12 Labs: Abnormal Lab Results - Last 24 Hours (Table) 11/14/23 Range/Units 06:12 Potassium 3.4 L (3.5-5.5) mmol/L Chloride 110 H (96-109) mmol/L BUN/Creatinine Ratio 37.67 H (12.00-20.00) Ratio Calcium 8.4 L (8.7-10.3) mg/dL
[2023-11-14] MEDS: POTASSIUM CHLORIDE ER 20 MEQ TAB.ER PO STA (17:58)
--- NOTE | 2023-11-14 18:39 | P.PN ---
Subjective Progress Note Date: 11/14/23 This a 57-year-old gentleman transferred in from [facility] with reported diagnosis of small bowel obstruction. NG tube present with 450 MLS bilious output overnight. Continued watery diarrhea, bloated , softer, lessened abdominal discomfort. Denies nausea, vomiting. Receiving IV fluid hydration. Reports unable to take morphine, causes increase in shortness of breath. Denies chest pain, palpitations or shortness of breath. Afebrile, normal WBC. Potassium 3.4. Renal function stable. 11/14/2023 afebrile, abdominal x-ray pending. Passing flatus. Diarrhea yesterday with no further nausea, vomiting or diarrhea. Denies abdominal pain. potassium 3.4, renal function continues to improve, creatinine 0.6. Denies chest pain, palpitations or shortness of breath. Continue O2 sats in the 90s on room air. Objective - Vital Signs Vital signs: Vital Signs Temp 98.3 F 11/14/23 12:00 Pulse 57 L 11/14/23 12:00 Resp 18 11/14/23 12:00 BP 162/78 11/14/23 12:00 Pulse Ox 98 11/14/23 12:00 FiO2 Intake & Output 11/13/23 11/14/23 11/14/23 18:59 06:59 18:59 Intake Total 750 Output Total 500 600 650 Balance 250 -600 -650 Intake: Intake, IV Titration 750 Amount 0.9% NaCl with KCl 40 Meq 750 /l 1,000 ml @ 75 mls/hr IV .[id number] [facility] Rx#: [id number] Output: Gastric Drainage 500 600 650 Other: Voiding Method Toilet # Voids 2 1 - Exam PHYSICAL EXAM: VITAL SIGNS: [As above] GENERAL: Sitting up in bed, no acute distress HEENT: Normocephalic, atraumatic conjunctivae normal. eyes normal. NG tube. NECK: Supple, no JVD. CARDIOVASCULAR: S1, S2 regular. No murmur RESPIRATION: Unlabored, equal air entry, breath sounds diminished in the bases. ABDOMEN: Soft, distended, diffuse mild tenderness, hypoactive bowel sounds LEGS: No edema. no swelling PSYCHIATRY: Alert and oriented X3, mood and affect normal. NERVOUS SYSTEM: Cranial N 2-12 grossly normal. No focal deficits. Strength and sensation grossly intact. Skin: Warm and dry, no rash - Labs CBC & Chem 7: 11/13/23 05:43 11/14/23 06:12 Labs: Abnormal Lab Results - Last 24 Hours (Table) 11/14/23 Range/Units 06:12 Potassium 3.4 L (3.5-5.5) mmol/L Chloride 110 H (96-109) mmol/L BUN/Creatinine Ratio 37.67 H (12.00-20.00) Ratio Calcium 8.4 L (8.7-10.3) mg/dL Assessment and Plan Assessment: Partial small bowel obstruction, CAD Hypertension Hyperlipidemia Obesity, BMI 31 Hypokalemia Plan: Continue on current medication using ,monitoring and symptomatic treatment. Potassium replacement ordered. Close monitoring of electrolytes, renal function with repeat labs ordered for a.m. abdominal x-ray completed , results pending .NPO, IV fluid hydration/NG tube management as per general surgery .increase ambulation as tolerated. Aggressive pulmonary toileting with incentive spirometer ordered. The impression and plan of care has been dictated as directed. : I performed a history and examination of this patient, discussed the same with the dictator. I agree with the dictator's note ,documented as a scribe. Any additional findings or plans will be noted.
[2023-11-15] MEDS: SODIUM CHLORIDE 0.9% 1,000 ML with POTASSIUM CHLORIDE 40 MEQ IV SCH (01:38)
[2023-11-15] MEDS: LOSARTAN 50 MG TAB PO SCH (10:49)
[2023-11-15] MEDS: atenoloL 25 MG TAB PO SCH (10:50)
[2023-11-15 11:47] LABS: BUN/Creat Ratio 20.71 Ratio (12.00-20.00); Blood Urea Nitrogen 14.5 mg/dL (9.0-27.0); Calcium 8.3 mg/dL (8.7-10.3); Carbon Dioxide 23.4 mmol/L (21.6-31.8); Chloride 111 mmol/L (96-109); Glucose 129 mg/dL (70-110); Magnesium 2.1 mg/dL (1.5-2.4); Potassium 3.7 mmol/L (3.5-5.5); Sodium 144 mmol/L (135-145)
--- NOTE | 2023-11-15 12:18 | P.PN ---
Subjective Progress Note Date: 11/15/23 Principal diagnosis: Gastroenteritis Patient denies nausea. Mild abdominal crampiness. He says he has had multiple loose watery stools earlier this morning. Tolerating clear liquids without difficulty. He is hungry for more to eat. Objective - Vital Signs Vital signs: Vital Signs Temp 98.1 F 11/15/23 07:56 Pulse 77 11/15/23 09:45 Resp 16 11/15/23 09:45 BP 162/85 11/15/23 07:56 Pulse Ox 97 11/15/23 07:56 FiO2 Intake & Output 11/14/23 11/15/23 11/15/23 18:59 06:59 18:59 Intake Total 900 900 Output Total 950 Balance -50 900 Intake: Intake, IV Titration 900 900 Amount 0.9% NaCl with KCl 40 Meq 900 /l 1,000 ml @ 75 mls/hr IV .[id number] [facility] Rx#: [id number] Sodium Chloride 0.9% 1, 900 000 ml @ 75 mls/hr IV . [id number] [facility] with Potassium Chloride 40 meq Rx#:[id number] Output: Gastric Drainage 650 Oral Regurgitation 300 Other: Voiding Method Toilet Toilet # Voids 3 - Exam Abdomen: Soft, nontender, nondistended - Labs CBC & Chem 7: 11/13/23 05:43 11/15/23 06:35 Labs: Abnormal Lab Results - Last 24 Hours (Table) 11/15/23 Range/Units 06:35 Chloride 111 H (96-109) mmol/L BUN/Creatinine Ratio 20.71 H (12.00-20.00) Ratio Glucose 129 H (70-110) mg/dL Calcium 8.3 L (8.7-10.3) mg/dL Assessment and Plan (1) Gastroenteritis Narrative/Plan: 57-year-old male with suspected infectious enteritis. Patient now having diarrhea once again. Check stool studies. Advance diet. Hold discharge until patient tolerating diet without significant diarrhea or cramps. Current Visit: Yes Status: Acute Code(s): K52.9 - NONINFECTIVE GASTROENTERITIS AND COLITIS, UNSPECIFIED SNOMED Code(s): 77948405
--- NOTE | 2023-11-15 14:15 | P.PN ---
Subjective Progress Note Date: 11/15/23 This a 57-year-old gentleman transferred in from [facility] with reported diagnosis of small bowel obstruction. NG tube present with 450 MLS bilious output overnight. Continued watery diarrhea, bloated , softer, lessened abdominal discomfort. Denies nausea, vomiting. Receiving IV fluid hydration. Reports unable to take morphine, causes increase in shortness of breath. Denies chest pain, palpitations or shortness of breath. Afebrile, normal WBC. Potassium 3.4. Renal function stable. 11/14/2023 afebrile, abdominal x-ray pending. Passing flatus. Diarrhea yesterday with no further nausea, vomiting or diarrhea. Denies abdominal pain. potassium 3.4, renal function continues to improve, creatinine 0.6. Denies chest pain, palpitations or shortness of breath. Continue O2 sats in the 90s on room air. 11/15/2023 abdominal x-ray completed yesterday reported NG tube placement interval reduction in distention of the small bowel. Persistent air-fluid levels and dilated bowel loops are suggestive of obstruction.NG tube discontinued yesterday, clear liquids initiated, tolerated. Denies nausea or vomiting. Reports minimal abdominal cramping, 3 small loose watery stools earlier this morning, decreased bloating. Blood sugars controlled. Afebrile. Electrolytes and renal function stable. Denies chest pain, palpitations or shortness of breath. Continue O2 sats in the high 90s on room air. Objective - Vital Signs Vital signs: Vital Signs Temp 98.6 F 11/15/23 13:00 Pulse 66 11/15/23 13:00 Resp 17 11/15/23 13:00 BP 138/75 11/15/23 13:00 Pulse Ox 97 11/15/23 13:00 FiO2 Intake & Output 11/14/23 11/15/23 11/15/23 18:59 06:59 18:59 Intake Total 900 900 Output Total 950 Balance -50 900 Intake: Intake, IV Titration 900 900 Amount 0.9% NaCl with KCl 40 Meq 900 /l 1,000 ml @ 75 mls/hr IV .[id number] [facility] Rx#: [id number] Sodium Chloride 0.9% 1, 900 000 ml @ 75 mls/hr IV . [id number] [facility] with Potassium Chloride 40 meq Rx#:[id number] Output: Gastric Drainage 650 Oral Regurgitation 300 Other: Voiding Method Toilet Toilet # Voids 3 - Exam PHYSICAL EXAM: VITAL SIGNS: [As above] GENERAL: Alert and oriented x 3, sitting up in bed, no acute distress HEENT: Normocephalic, atraumatic conjunctivae normal. eyes normal. NG tube. NECK: Supple, no JVD. CARDIOVASCULAR: S1, S2 regular. No murmur RESPIRATION: Unlabored, equal air entry, breath sounds diminished in the bases. ABDOMEN: Soft, nondistended, nontender, positive bowel sounds LEGS: No edema. no swelling NERVOUS SYSTEM: Cranial N 2-12 grossly normal. No focal deficits. Skin: Warm and dry, no rash - Labs CBC & Chem 7: 11/13/23 05:43 11/15/23 06:35 Labs: Abnormal Lab Results - Last 24 Hours (Table) 11/15/23 Range/Units 06:35 Chloride 111 H (96-109) mmol/L BUN/Creatinine Ratio 20.71 H (12.00-20.00) Ratio Glucose 129 H (70-110) mg/dL Calcium 8.3 L (8.7-10.3) mg/dL Assessment and Plan Assessment: Partial small bowel obstruction, suspected infectious enteritis as per general surgery CAD Hypertension Hyperlipidemia Obesity, BMI 31 Hypokalemia Plan: Continue on current medication using ,monitoring and symptomatic treatment. Stool studies pending. Diet advancement as per general surgery .increase ambulation as tolerated. Maintain aggressive pulmonary toileting with incentive spirometer ordered. Discharge planning in progress potentially for tommorrow. The impression and plan of care has been dictated as directed. : I performed a history and examination of this patient, discussed the same with the dictator. I agree with the dictator's note ,documented as a scribe. Any additional findings or plans will be noted.
--- NOTE | 2023-11-16 12:03 | P.PN ---
Subjective Progress Note Date: 11/16/23 This a 57-year-old gentleman transferred in from [facility] with reported diagnosis of small bowel obstruction. NG tube present with 450 MLS bilious output overnight. Continued watery diarrhea, bloated , softer, lessened abdominal discomfort. Denies nausea, vomiting. Receiving IV fluid hydration. Reports unable to take morphine, causes increase in shortness of breath. Denies chest pain, palpitations or shortness of breath. Afebrile, normal WBC. Potassium 3.4. Renal function stable. 11/14/2023 afebrile, abdominal x-ray pending. Passing flatus. Diarrhea yesterday with no further nausea, vomiting or diarrhea. Denies abdominal pain. potassium 3.4, renal function continues to improve, creatinine 0.6. Denies chest pain, palpitations or shortness of breath. Continue O2 sats in the 90s on room air. 11/15/2023 abdominal x-ray completed yesterday reported NG tube placement interval reduction in distention of the small bowel. Persistent air-fluid levels and dilated bowel loops are suggestive of obstruction.NG tube discontinued yesterday, clear liquids initiated, tolerated. Denies nausea or vomiting. Reports minimal abdominal cramping, 3 small loose watery stools earlier this morning, decreased bloating. Blood sugars controlled. Afebrile. Electrolytes and renal function stable. Denies chest pain, palpitations or shortness of breath. Continue O2 sats in the high 90s on room air. 11/16/2023 diet advanced to low fiber diet for dinner yesterday. Developed frequent bouts of watery diarrhea with undigested food reported accompanied by abdominal cramping, bloating. Reports she was up approximately every 2 hours. This morning consumed his entire breakfast, tolerated well with symptoms currently improved. Denies chest pain, palpitations or shortness of breath. Hypertensive, on IV fluids. Objective - Vital Signs Vital signs: Vital Signs Temp 98.5 F 11/16/23 07:02 Pulse 78 11/16/23 07:02 Resp 18 11/16/23 07:02 BP 163/87 11/16/23 07:02 Pulse Ox 97 11/16/23 07:02 FiO2 Intake & Output 11/15/23 11/16/23 11/16/23 18:59 06:59 18:59 Intake Total 1620 Output Total 2 Balance 1620 -2 Intake: Oral 1620 Output: Stool 2 Other: Voiding Method Toilet # Voids 3 3 # Bowel Movements 3 - Exam PHYSICAL EXAM: VITAL SIGNS: [As above] GENERAL: Alert and oriented x 3, sitting up in bed, no acute distress HEENT: Normocephalic, atraumatic conjunctivae normal. eyes normal. NECK: Supple, no JVD. CARDIOVASCULAR: S1, S2 regular. No murmur RESPIRATION: Unlabored, equal air entry, breath sounds diminished in the bases. ABDOMEN: Soft, nondistended, nontender, positive bowel sounds LEGS: No edema. no swelling NERVOUS SYSTEM: Cranial N 2-12 grossly normal. No focal deficits. Skin: Warm and dry, no rash - Labs CBC & Chem 7: 11/13/23 05:43 11/15/23 06:35 Assessment and Plan Assessment: Suspected infectious enteritis as per general surgery CAD Hypertension Hyperlipidemia Obesity, BMI 31 Hypokalemia Plan: Continue on current medication using ,monitoring and symptomatic treatment. DC IV fluids .stool studies pending. Increase ambulation as tolerated. Maintain aggressive pulmonary toileting with incentive spirometer ordered. The impression and plan of care has been dictated as directed. : I performed a history and examination of this patient, discussed the same with the dictator. I agree with the dictator's note ,documented as a scribe. Any additional findings or plans will be noted.
[2023-11-16 13:35] VITALS: BP 167/92; PULSE 66; RESP 16; TEMP 98.4
--- NOTE | 2023-11-16 16:15 | P.PN ---
Subjective Progress Note Date: 11/16/23 Principal diagnosis: Gastroenteritis Patient doing better today. No significant pain. Tolerating diet. Having bowel movements now every 3-4 hours. Yesterday was every 2 hours or so. Patient had his IV disconnected. He has showered. He is ambulating. He feels comfortable for discharge. Objective - Vital Signs Vital signs: Vital Signs Temp 98.4 F 11/16/23 13:03 Pulse 66 11/16/23 13:03 Resp 16 11/16/23 13:03 BP 167/92 11/16/23 13:03 Pulse Ox 98 11/16/23 13:03 FiO2 Intake & Output 11/15/23 11/16/23 11/16/23 18:59 06:59 18:59 Intake Total 1620 Output Total 2 Balance 1620 -2 Intake: Oral 1620 Output: Stool 2 Other: Voiding Method Toilet # Voids 3 3 # Bowel Movements 3 - Exam Abdomen: Soft, nontender, nondistended - Labs CBC & Chem 7: 11/13/23 05:43 11/15/23 06:35 Assessment and Plan (1) Gastroenteritis Narrative/Plan: Patient doing gradually better. Still suspect viral enteritis. Begin oral Pepto-Bismol. May consider discharge. Current Visit: Yes Status: Acute Code(s): K52.9 - NONINFECTIVE GASTROENTERITIS AND COLITIS, UNSPECIFIED SNOMED Code(s): 04427904
[2023-11-16] MEDS: BISMUTH SUBSALICYLATE 4,192 MG/240 ML BOTTLE PO SCH (17:46)
--- NOTE | 2023-11-17 12:19 | P.DS ---
Providers Date of admission: 11/12/23 11:36 Expected date of discharge: 11/16/23 Attending physician: Garrett Brink Consults: 11/12/23 11:36 Consult Physician Urgent Consulting Provider: Flaco Faustin Reason/Comments: Partial small bowel obstruction Do you want consulting provider notified?: Yes Primary care physician: Garrett Brink [facility] Course: Final diagnoses Suspected viral enteritis as per general surgery CAD Hypertension Hyperlipidemia Obesity, BMI 31 Hypokalemia Hospital course:This a 57-year-old gentleman transferred in from [facility] with reported diagnosis of small bowel obstruction. NG tube present with 450 MLS bilious output overnight. Continued watery diarrhea, bloated , softer, lessened abdominal discomfort. Denies nausea, vomiting. Receiving IV fluid hydration. Reports unable to take morphine, causes increase in shortness of breath. Denies chest pain, palpitations or shortness of breath. Afebrile, normal WBC. Potassium 3.4. Renal function stable. 11/14/2023 afebrile, abdominal x-ray pending. Passing flatus. Diarrhea yesterday with no further nausea, vomiting or diarrhea. Denies abdominal pain. potassium 3.4, renal function continues to improve, creatinine 0.6. Denies chest pain, palpitations or shortness of breath. Continue O2 sats in the 90s on room air. 11/15/2023 abdominal x-ray completed yesterday reported NG tube placement interval reduction in distention of the small bowel. Persistent air-fluid levels and dilated bowel loops are suggestive of obstruction.NG tube discontinued yesterday, clear liquids initiated, tolerated. Denies nausea or vomiting. Reports minimal abdominal cramping, 3 small loose watery stools earlier this morning, decreased bloating. Blood sugars controlled. Afebrile. Electrolytes and renal function stable. Denies chest pain, palpitations or shortness of breath. Continue O2 sats in the high 90s on room air. 11/16/2023 diet advanced to low fiber diet for dinner yesterday. Developed frequent bouts of watery diarrhea with undigested food reported accompanied by abdominal cramping, bloating. Reports she was up approximately every 2 hours. This morning consumed his entire breakfast, tolerated well with symptoms currently improved. Denies chest pain, palpitations or shortness of breath. Hypertensive, on IV fluids. IV fluids decreased, ambulating, showered. Currently reports bowel movements frequency has decreased to every 3-4 hours with no abdominal cramping. Abdomen soft, nondistended, nontender .positive bowel sounds. Denies chest pain, palpitations or shortness of breath. Denies lightheadedness, dizziness or focal deficits. Significant clinical improvement. Cleared by general surgery for discharge; suspect viral enteritis and began patient on Pepto-Bismol. Patient will be discharged home today in a stable condition with guarded prognosis. The impression and plan of care has been dictated as directed. : I performed a history and examination of this patient, discussed the same with the dictator. I agree with the dictator's note ,documented as a scribe. Any additional findings or plans will be noted.. Patient Condition at Discharge: Stable Plan - Discharge Summary Discharge Rx Participant: No New Discharge Prescriptions: No Action hydroCHLOROthiazide 25 mg PO DAILY atenoloL 25 mg PO DAILY Cholecalciferol (Vitamin D3) [Decara (50,000 Iu)] 1,250 mcg PO SALINAS Ubidecarenone [Coenzyme Q10] 200 mg PO DAILY Ondansetron Odt [Zofran Odt] 4 mg PO DIRECTED PRN PRN Reason: Nausea Dicyclomine [Bentyl] 20 mg PO DIRECTED Atorvastatin [Lipitor] 10 mg PO DAILY Aspirin 81 mg PO DAILY Multivitamin [Multivitamins Adult Gummies] 1 tab PO DAILY Losartan Potassium 100 mg PO DAILY Discharge Medication List Aspirin 81 mg PO DAILY 12/12/22 [History] Atorvastatin [Lipitor] 10 mg PO DAILY 12/12/22 [History] Multivitamin [Multivitamins Adult Gummies] 1 tab PO DAILY 12/12/22 [History] atenoloL 25 mg PO DAILY 12/12/22 [History] hydroCHLOROthiazide 25 mg PO DAILY 12/12/22 [History] Cholecalciferol (Vitamin D3) [Decara (50,000 Iu)] 1,250 mcg PO SALINAS 11/12/23 [History] Dicyclomine [Bentyl] 20 mg PO DIRECTED 11/12/23 [History] Losartan Potassium 100 mg PO DAILY 11/12/23 [History] Ondansetron Odt [Zofran Odt] 4 mg PO DIRECTED PRN 11/12/23 [History] Ubidecarenone [Coenzyme Q10] 200 mg PO DAILY 11/12/23 [History] Follow up Appointment(s)/Referral(s): Flaco Faustin MD [Medical Doctor] - As Needed Garrett Brink DO [Primary Care Provider] - 1 Week (follow up 1-2 weeks) Patient Instructions/Handouts: Gastroenteritis (DC), Bowel Obstruction (DC) Discharge Disposition: HOME SELF-CARE
== END 2023-11-16 17:58 | disposition home or self-care (01) | DRG 389 ==
LOC: EC 09:49 → 5NMEDONC 11:36
PROVIDERS: ADMIT Family Medicine; ATTEND Family Medicine
DX: K56.7 Ileus, unspecified (principal); A09 Infectious gastroenteritis and colitis, unspecified; I25.10 Atherosclerotic heart disease of native coronary artery without angina pectoris; E78.5 Hyperlipidemia, unspecified; I10 Essential (primary) hypertension; E66.9 Obesity, unspecified; Z68.31 Body mass index [BMI] 31.0-31.9, adult; E55.9 Vitamin D deficiency, unspecified; E87.6 Hypokalemia; F32.A Depression, unspecified; I25.2 Old myocardial infarction; Z79.82 Long term (current) use of aspirin; Z79.899 Other long term (current) drug therapy; Z80.8 Family history of malignant neoplasm of other organs or systems; Z85.828 Personal history of other malignant neoplasm of skin; Z28.311 Partially vaccinated for COVID-19
CPT/HCPCS: 74019; 80048; 80053; 83735; 85025; 87045; 87046; 96361; 96374; 99285